=== PATIENT | male | born 1965 | race Caucasian/White ===

== ENCOUNTER 2016-05-24 16:58 | Emergency (ER) | payer BC ==
[2016-05-24] MEDS ORDERED: Midazolam 1 MG/ML 2 ML SDV IVPUSH ONE (17:14)
[2016-05-24] MEDS ORDERED: HYDROmorphone 1 MG/ML Syringe IVPUSH ONE (17:14)
[2016-05-24] MEDS ORDERED: Ondansetron 4 MG/2 ML SDV IVPUSH ONE (17:14)
[2016-05-24] MEDS ORDERED: Sodium Chloride 0.9% 1,000 ML IV SCH (17:30)
--- NOTE | 2016-05-24 17:30 | EDM.PDOC ---
ED HPI Trauma - General Chief Complaint: Upper Extremity Injury/Pain Stated Complaint: FELL, R SHOULDER AND R LEG INJURY Time Seen by Provider: 05/24/16 17:08 Source: Reports: Patient, RN notes reviewed - History of Present Illness INITIAL COMMENTS - FREE TEXT/NARRATIVE: 50-year-old male comes in with right shoulder pain. He states he tripped and fell a short time ago. Can't really tell me how he landed. However he now has severe pain of the right shoulder and severe pain with any type of motion of the right arm. Denies history of prior dislocation he does have some paresthesias in the right hand. No other pain or injury from this incident Allergies/ADRs: Allergies No Known Allergies Allergy (Verified 05/24/16 17:11) Home Medications: Ambulatory Orders Aspirin [Ecotrin] 81 mg PO DAILY 05/24/16 [Confirmed 05/24/16] Ibuprofen. 05/24/16 Past Medical History Musculoskeletal History: Reports: Other (see below) Other Musculoskeletal History: surgery to the right lower leg for a fracture Social & Family History - Tobacco Use Smoking Status *Q: Never Smoker Second Hand Smoke Exposure: No - Recreational Drug Use Recreational Drug Use: No Review of Systems - Review of Systems Review Of Systems: See Below Eyes: Reports: no symptoms Mouth/Throat: Reports: no symptoms Respiratory: Denies: Shortness of Breath, Pleuritic Chest Pain Cardiovascular: Denies: chest pain GI/Abdominal: Denies: Abdominal pain, Nausea, Vomiting Musculoskeletal: Reports: shoulder pain (Right shoulder), arm pain (Right proximal upper arm). Denies: leg pain Skin: Reports: no symptoms Neurological: Reports: Numbness (Right hand) Trauma Exam - Physical Exam Exam: See Below General Appearance: Reports: alert, moderate distress Eyes: bilateral eye: PERRL Throat/Mouth: Reports: Normal inspection, Normal oropharynx, Other (There is no injury to the head or face) Neck: Reports: full range of motion Respiratory Exam: Reports: no respiratory distress, lungs clear, normal breath sounds Cardiovascular: Reports: regular rate, rhythm Extremities: Reports: bony-point tenderness (Right shoulder), other (There is lack of fullness of the right shoulder joint, severe pain with any type of motion of the right shoulder, there is some discomfort of the distal clavicle but no visible swelling or deformity) Neurologic: Reports: no motor/sensory deficits Skin: Reports: Normal color, Warm/dry Course - Vital Signs Last Recorded V/S: Last Vital Signs Temp 96.8 F 05/24/16 18:48 Pulse 82 05/24/16 18:48 Resp 24 H 05/24/16 18:48 BP 144/90 H 05/24/16 18:48 Pulse Ox 94 L 05/24/16 18:48 - Orders/Labs/Meds Orders: Active Orders 24 hr Category Date Time Status Shoulder 1V Rt [CR] Stat Exams 05/24/16 18:58 Ordered Shoulder Comp Rt [CR] Stat Exams 05/24/16 17:27 Taken Sodium Chloride 0.9% [Normal Saline] 1,000 ml Med 05/24/16 17:30 Active IV ASDIRECTED Medication Orders Sodium Chloride (Normal Saline) 1,000 mls @ 150 mls/hr IV ASDIRECTED LETICIA Last Admin: 05/24/16 17:40 Dose: 150 mls/hr Meds: Medications Generic Name Dose Route Start Last Admin Trade Name Freq PRN Reason Stop Dose Admin Sodium Chloride 1,000 mls @ 150 mls/hr 05/24/16 17:30 05/24/16 17:40 Normal Saline IV 150 mls/hr ASDIRECTED LETICIA Administration Discontinued Medications Generic Name Dose Route Start Last Admin Trade Name Freq PRN Reason Stop Dose Admin Fentanyl 200 mcg 05/24/16 18:21 05/24/16 18:28 Sublimaze IVPUSH 05/24/16 18:22 200 mcg ONETIME ONE Administration Hydromorphone HCl 1 mg 05/24/16 17:14 05/24/16 17:23 Dilaudid IVPUSH 05/24/16 17:15 1 mg ONETIME ONE Administration Lidocaine HCl Confirm 05/24/16 18:52 Xylocaine-Mpf 1% Administered 05/24/16 18:53 Dose 6 mls @ as directed .ROUTE .STK-MED ONE Midazolam HCl 2 mg 05/24/16 17:14 05/24/16 17:25 Versed 1 Mg/Ml IVPUSH 05/24/16 17:15 2 mg ONETIME ONE Administration Ondansetron HCl 4 mg 05/24/16 17:14 05/24/16 17:23 Zofran IVPUSH 05/24/16 17:15 4 mg ONETIME ONE Administration Propofol Confirm 05/24/16 18:52 Diprivan 20 Ml Administered 05/24/16 18:53 Dose 200 mg .ROUTE .STK-MED ONE - Re-Assessments/Exams Free Text/Narrative Re-Assessment/Exam: 05/24/16 19:00. X-rays did confirm dislocation of shoulder as expected. We did call in one of our nurse carbon lamp cleaner did provide short-term sedation. Shoulder was reduced with longitudinal traction without difficulty. We'll plan to place him in a shoulder immobilizer. Postreduction film confirms reduction. I do not see any visible fracture. Discharge instructions as documented. Departure - Departure Time of Disposition: 19:30 Disposition: Home, Self-Care 01 Condition: fair Clinical Impression: Shoulder dislocation Qualifiers: Encounter type: initial encounter Laterality: right Qualified Code(s): S43.004A - Unspecified dislocation of right shoulder joint, initial encounter Forms: ED Department Discharge Additional Instructions: Shoulder immobilizer for right upper extremity, start working with very simple exercises in about 3-4 days as discussed, you can alternate Tylenol and Advil or ibuprofen as needed for discomfort, Hydrocodone if needed for more severe pain. Do not take Tylenol and Percocet at the same time, do not drive or work when taking Hydrocodone. Followup with Dr Bee early next week, call tomorrow morning for appointment. Return to ED as needed. - My Orders Last 24 Hours: My Active Orders 05/24/16 17:27 Shoulder Comp Rt [CR] Stat 05/24/16 17:30 Sodium Chloride 0.9% [Normal Saline] 1,000 ml IV ASDIRECTED 05/24/16 18:58 Shoulder 1V Rt [CR] Stat - Assessment/Plan Last 24 Hours: My Active Orders 05/24/16 17:27 Shoulder Comp Rt [CR] Stat 05/24/16 17:30 Sodium Chloride 0.9% [Normal Saline] 1,000 ml IV ASDIRECTED 05/24/16 18:58 Shoulder 1V Rt [CR] Stat
[2016-05-24] MEDS ORDERED: fentaNYL 100 MCG/2 ML SDV IVPUSH ONE (18:21)
--- NOTE | 2016-05-24 18:29 | PCM.PREANE ---
Preanesthetic Assessment - Anesthesia/Transfusion/Family Hx Anesthesia History: Prior Anesthesia Without Reaction Family History of Anesthesia Reaction: No Transfusion History: No Prior Transfusion(s) Intubation History: Unknown - Review of Systems General: No Symptoms Pulmonary: No Symptoms Cardiovascular: No Symptoms Gastrointestinal: No symptoms Neurological: Numbness (right hand since recent fall), Paresthesia (right hand) Other: Reports: None - Physical Assessment NPO Status Date: 05/23/16 NPO Status Time: 13:30 Pulse: 82 O2 Sat by Pulse Oximetry: 94 Respiratory Rate: 24 Blood Pressure: 144/90 Temperature: 36 C Vital Signs: Last Vital Signs Temp 36.0 C 05/24/16 17:12 Pulse 82 05/24/16 17:12 Resp 24 H 05/24/16 17:12 BP 172/130 H 05/24/16 17:12 Pulse Ox 94 L 05/24/16 17:12 Height: 1.88 m Weight: 113.398 kg ASA Class: 1E Mental Status: Alert & Oriented x3 Airway Class: Mallampati = 2 Dentition: Reports: Dentures (upper), Partial (lower) Thyro-Mental Finger Breadths: 3 Mouth Opening Finger Breadths: 3 ROM/Head Extension: Full Lungs: Clear to auscultation, Normal respiratory effort Cardiovascular: Regular Rate, Regular Rhythm - Allergies Allergies/Adverse Reactions: Allergies Allergy/AdvReac Type Severity Reaction Status Date / Time No Known Allergies Allergy Verified 05/24/16 17:11 - Anesthesia Plan Pre-Op Medication Ordered: None - Acknowledgements Anesthesia Type Planned: MAC Pt an Appropriate Candidate for the Planned Anesthesia: Yes Alternatives and Risks of Anesthesia Discussed w Pt/Guardian: Yes Pt/Guardian Understands and Agrees with Anesthesia Plan: Yes PreAnesthesia Questionnaire Musculoskeletal History: Reports: Other (see below) Other Musculoskeletal History: surgery to the right lower leg for a fracture - SUBSTANCE USE Smoking Status *Q: Never Smoker Second Hand Smoke Exposure: No Recreational Drug Use History: No - HOME MEDS Home Medications: Home Meds Aspirin [Ecotrin] 81 mg PO DAILY 05/24/16 [History] Ibuprofen. 05/24/16 [History] - CURRENT (IN HOUSE) MEDS Current Meds: Current Medications Sodium Chloride (Normal Saline) 1,000 mls @ 150 mls/hr IV ASDIRECTED [facility] Last Admin: 05/24/16 17:40 Dose: 150 mls/hr Discontinued Medications Fentanyl (Sublimaze) 200 mcg IVPUSH ONETIME ONE Stop: 05/24/16 18:22 Hydromorphone HCl (Dilaudid) 1 mg IVPUSH ONETIME ONE Stop: 05/24/16 17:15 Last Admin: 05/24/16 17:23 Dose: 1 mg Midazolam HCl (Versed 1 Mg/Ml) 2 mg IVPUSH ONETIME ONE Stop: 05/24/16 17:15 Last Admin: 05/24/16 17:25 Dose: 2 mg Ondansetron HCl (Zofran) 4 mg IVPUSH ONETIME ONE Stop: 05/24/16 17:15 Last Admin: 05/24/16 17:23 Dose: 4 mg
[2016-05-24] MEDS ORDERED: Propofol 200 MG/20 ML SDV ONE (18:52)
[2016-05-24] MEDS ORDERED: Lidocaine 1% 6 ML ONE (18:52)
[2016-05-24 20:17] VITALS: BP 146/92
--- NOTE | 2016-05-25 10:32 | CR ---
Right shoulder: Three views of the right shoulder were obtained. Anterior dislocation is seen. Slight spurring noted off the glenoid. Mild joint space narrowing is seen within the acromioclavicular joint. Impression: 1. Anterior dislocated right shoulder and minimal degenerative change. Diagnostic code #3
--- NOTE | 2016-05-25 10:32 | CR ---
Right shoulder: AP view of the right shoulder was obtained. Comparison: Previous right shoulder study performed earlier on the same day (5:48 PM). Previous dislocation has been reduced. No additional abnormality is seen. Impression: 1. Relocation of previous right shoulder dislocation. Diagnostic code #1
== END 2016-05-24 20:15 | disposition home or self-care (01) ==
LOC: JD.ED 16:58
DX: S43.004A Unspecified dislocation of right shoulder joint, initial encounter (principal); W01.0XXA Fall on same level from slipping, tripping and stumbling without subsequent striking against object, initial encounter
CPT/HCPCS: 23655; 73020; 73030; 96361; 96374; 96375; 99284; J1170; J2250; J2405; J3010; J7040; 01620; 23650; J2704